=== PATIENT | female | born 1930 | race Caucasian/White ===

== ENCOUNTER 2016-07-18 08:10 | Inpatient (IN) | payer OTHER, BC ==
--- NOTE | 2016-07-18 08:24 | PDOC ---
History of Present Illness - General History Source: Patient Exam Limitations: No Limitations - History of Present Illness Initial Comments: 07/18/16 08:16 85y F hx of advanced parkinsons, htn, reflux, rls, presents with expressive aphasia. The patient was last seen normal yesterday (daughter called and spoke to the patient). This morning, the daugther called the patient to check in on her and she was not making sense and seemed frustrated, so she called EMS. EMS notes the pt was slightly hypetensive to 160s sbp, sat/HR was normal, bgm was 101. There was no apparent deficits otherwise. Pt endorses mild R sided headache, otherwise denies any complaints (Although this may be limited by her expressive aphasia). PCP - Dr. Webb Orthopedist - Dr. Broderick <Noble Gay - Last Filed: 07/18/16 10:41> <Lyle Gamez - Last Filed: 07/18/16 12:06> - General Stated Complaint: CVA/TIA Time Seen by Provider: 07/18/16 08:14 Past History - Past Medical History Anemia: No Asthma: No Cancer: No Cardiac Disorders: No CVA: No COPD: No CHF: No Dementia: No Diabetes: No GI Disorders: Yes (REFLUX) Disorders: No HTN: Yes Hypercholesterolemia: No Liver Disease: No Suicide Attempt (Hx): No Seizures: No Thyroid Disease: No - Surgical History Abdominal Surgery: No Appendectomy: No Cardiac Surgery: No Cholecystectomy: No Lung Surgery: No Neurologic Surgery: No Orthopedic Surgery: Yes (RIGHT / LEFT KNEE REPLACEMENT) - Psycho/Social/Smoking Cessation Hx Anxiety: No Suicidal Ideation: No Smoking Status: No Smoking History: Never smoked Have you smoked in the past 12 months: No Number of Cigarettes Smoked Daily: 0 Hx Alcohol Use: No Drug/Substance Use Hx: No Substance Use Type: None Hx Substance Use Treatment: No <Noble Gay - Last Filed: 07/18/16 10:41> <Lyle Gamez - Last Filed: 07/18/16 12:06> - Past Medical History Allergies/Adverse Reactions: Allergies Allergy/AdvReac Type Severity Reaction Status Date / Time No Known Drug Allergies Allergy Verified 07/18/16 08:18 Home Medications: Ambulatory Orders Carbidopa/Levodopa [Sinemet 25-100 mg Tablet] 2 each PO TID 11/05/11 Aspirin Coated [Ecotrin -] 81 mg PO DAILY 11/06/11 Cyanocobalamin (Vitamin B-12) [Vitamin B-12] 1,000 mcg IM MONTHLY 08/26/13 Cholecalciferol (Vitamin D3) [Vitamin D3] 2,000 unit PO DAILY tablet 12/27/14 Latanoprost 1 drop OP OU HS bottle 07/24/15 Levomefolate/B6/B12/Algal Oil [Metanx Capsule] 1 each PO BID capsule 07/24/15 Gabapentin 300 mg PO HS capsule 04/24/16 Review of Systems - Review of Systems Able to Perform ROS?: Yes (may be limited to her aph) Comments:: 07/18/16 08:18 may be limited due to aphasia Constitutional - no reported Fever, Chills, weakness, HEENT: no reported vision changes, sore throat Respiratory: no reported cough, sob, hemoptysis Cardiac: no reported chest pain, palpitations, light headedness, leg swelling Abd/GI: +nausea no reported abd pain, vomiting, blood per rectum, melena, diarrhea : no reported dysuria, frequency, discharge Musculskelatal - no reported back pain, joint swelling skin - no reported bruising, erythema, rash neurological: +headache no reported , numbness, focal weakness, tingling, ataxia , weakness hematologic: no reported anemia, easy bruising, easy bleeding <Deidra,Noble - Last Filed: 07/18/16 10:41> *Physical Exam - Physical Exam Comments: 07/18/16 08:24 GENERAL: The patient is awake, alert, and fully oriented, Nontoxic - in no acute distress. HEAD: Normocephalic, atraumatic. EYES: extraocular movements intact, sclera anicteric, conjunctiva clear. ENT: Normal voice, Moist mucous membranes. NECK: Normal range of motion, supple LUNGS: Breath sounds equal, clear to auscultation bilaterally. No wheezes, no rhonchi, no rales. HEART: Regular rate and rhythm, normal S1 and S2 without murmur, rub or gallop. ABDOMEN: Soft, nontender, normoactive bowel sounds. No guarding, no rebound. . No CVA tenderness EXTREMITIES: Normal range of motion, no edema. No clubbing or cyanosis. No cords, erythema, or tenderness. NEUROLOGICAL: No facial assymetry, aphasic (expressive), moving all 4 extremities spontaneously and symmetrically, PSYCH: Normal mood, normal affect. SKIN: Warm, Dry, normal turgor, <Noble Gay - Last Filed: 07/18/16 10:41> - Vital Signs Last Vital Signs Temp Pulse Resp BP Pulse Ox 99.7 F H 62 20 146/92 100 07/18/16 08:18 07/18/16 08:18 07/18/16 08:18 07/18/16 08:18 07/18/16 08:18 <Lyle Gamez - Last Filed: 07/18/16 12:06> NIH Stroke Scale - Last Known Well Date/Time & Onset Date Last Known Well: 07/18/16 Time Last Known Well: 19:00 - Initial Evaluation Level of consciousness: Alert Ask patient the month and their age: Both incorrect Ask patient to open & close eyes; make fist and let go: Obeys both correctly Best gaze (horizontal eye movement): Normal Visual field testing: No visual field loss Facial paresis (Show teeth/raise eyebrows/close eyes tight): Normal symmetrical movement Motor Function: Left Arm: Normal Motor Function: Right Arm: Normal (extends arm 90 (or 45) degrees for 10 seconds without drift Motor Function: Left Leg: Normal (extends leg 30 degrees for 5 seconds without drift) Motor Function: Right Leg: Normal (extends leg 30 degrees for 5 seconds without drift) Limb Ataxia: No ataxia Sensory(Use pinprick test arms,legs,trunk,face/side to side): Normal Best language (Describe picture, name items, read sentences): Severe aphasia Dysarthria (read several words): Normal articulation Extinction and Inattention: No abnormality - Total Score NIH Stroke Scale Score: 4 <Noble Gay - Last Filed: 07/18/16 10:41> tPA Exclusion Checklist 0-3hr - Time Elapsed Date last known well: 07/17/16 Time last known well: 19:00 Elaspsed time: Day(s) and 15 Hour(s) and 41 Minutes - Thrombolytic Therapy Candidate Is the patient eligible for Thrombolytic Therapy?: No - Ineligibility reason(s) Reasons No tPA given: Outside of window - delayed arrival <Noble Gay - Last Filed: 07/18/16 10:41> Heart Score/ECG Review - ECG Impressions Comment:: 07/18/16 08:30 Twelve-lead EKG was performed and reviewed by me. There is normal sinus rhythm with a rate of 56 The axis is normal. The intervals are normal. There is normal R wave progression There are no ST or T wave abnormalities. Impression: Sinus bradycardia <Noble Gay - Last Filed: 07/18/16 10:41> Critical Care Time/MDM Note - Medical Decision Making Note: 07/18/16 08:26 85y F hx of htn, advanced prakinsons presents with expressive aphasia, last known normal was last night on exam pts neuro exam seems intact beside her aphasia vitals normal bgm normal suspect stroke outside TPA window (last normal >12 hrs ago) ct head ordered labs/cxr/ua obtained will r/o anemia, metabolic dernagmeent, occult infection NIHSS of 4 07/18/16 10:15 07/18/16 10:[address] head negative for acute disease case dw dr. Isaac. agree w/ mangaement will give pt asa. will admit to stroke unit will admit to the hospitalist service for further mangaement of cva Case discussed in detail with admitting physician including history, physical exam and ancillary studies. Admitting physician has assumed care for the patient, will follow all pending diagnostics and will complete the evaluation and treatment. CRITICAL CARE DOCUMENTATION: I spent ~35 minutes of Critical Care time, excluding separately billable procedures, involving high complexity decision making to assess, manipulate and support vital system function(s) to treat single or multiple vital organ system failure and/or to prevent further life threatening deterioration of the patient' s condition. <Noble Gay - Last Filed: 07/18/16 10:41> - Medical Decision Making Note: 07/18/16 09:[address] Lynnette parekh. Awaiting call back. 07/18/16 10:[address] Lynnette parekh. Was told to call Dr. Isaac. 07/18/16 10:[address] Isaac placed. Awaiting call back. 07/18/16 10:10 Dr. Isaac call into ED. Case discussed. Documentation prepared by Lyle Artuso, acting as medical assembly for Noble Gay MD. <Lyle Gamez - Last Filed: 07/18/16 12:06> Discharge Disposition - Discharge Dispostion Admit: Yes <Noble Gay - Last Filed: 07/18/16 10:41> <Lyle Gamez - Last Filed: 07/18/16 12:06> - Diagnosis Aphasia CVA (cerebral vascular accident) Qualifiers: CVA mechanism: unspecified Qualified Code(s): I63.9 - Cerebral infarction, unspecified - Discharge Dispostion Condition at time of disposition: Guarded - Referrals - Patient Instructions
[2016-07-18] MEDS: SODIUM CHLORIDE 1,000 ML IV SCH ×2 (08:30→12:10)
[2016-07-18 08:34] LABS: BASOPHIL 0.8 % (0-2.0); EOSINOPHIL 0.1 % (0-4.5); MCHC 32.9 g/dl (32.0-36.0); MEAN CELL VOLUME 88.1 fl (80-96); MEAN PLT VOLUME 7.1 fl (7.5-11.1); NEUTROPHILS 75.8 % (42.8-82.8); PLATELET COUNT 174 K/MM3 (134-434); RDW 14.4 % (11.6-15.6); WHITE BLOOD COUNT 7.1 K/mm3 (4.0-10.0)
[2016-07-18 08:52] LABS: INR 1.01 (0.82-1.09); PROTHROMBIN TIME (PATIENT) 11.1 SEC (9.98-11.88)
[2016-07-18 09:03] LABS: ALBUMIN 3.1 g/dl (3.4-5.0); ANION GAP 7 (8-16); BILIRUBIN,TOTAL 0.5 mg/dL (0.2-1.0); CALCIUM 8.5 mg/dL (8.5-10.1); CHOLESTEROL 204 mg/dL (50-200); CO2 29 mmol/L (21-32); CREATININE 0.8 mg/dL (0.55-1.02); GLUCOSE,RANDOM 106 mg/dL (74-106); LDL CHOLESTEROL (ONLY SJRH) 124 mg/dL (5-100); SGOT/AST 14 U/L (15-37); SGPT/ALT 9 U/L (12-78); TOT PROT 6.2 g/dl (6.4-8.2)
[2016-07-18 09:04] LABS: ALK PHOS 86 U/L (45-117); TROPONIN I < 0.02 ng/ml (0.00-0.05)
[2016-07-18] MEDS ORDERED: ASPIRIN 81 MG CHEWABLE TABLETS PO ONE (09:46)
--- NOTE | 2016-07-18 09:50 | EKG ---
Test Reason : Blood Pressure : / mmHG Vent. Rate : 056 BPM Atrial Rate : 056 BPM P-R Int : 166 ms QRS Dur : 106 ms QT Int : 464 ms P-R-T Axes : 016 -12 013 degrees QTc Int : 447 ms SINUS BRADYCARDIA INCOMPLETE RBBB Confirmed by JANEY ROBLES MD ([id number]) on 07/18/2016 9:50:23 AM Referred By: Confirmed By:JANEY ROBLES MD
[2016-07-18] MEDS ORDERED: INSULIN (NOVOLOG) ASPART 100 UNITS/ML 10ML VIAL ONE (10:38)
[2016-07-18] MEDS ORDERED: ASPIRIN 81 MG CHEWABLE TABLETS ONE (10:40)
--- NOTE | 2016-07-18 11:34 | HP ---
CHIEF COMPLAINT: expressive aphasia PCP: Dr. Webb HISTORY OF PRESENT ILLNESS: This 85 year old female presents to the ER with expressive aphasia. Her daughter talked to her on the phone and found her to have difficulty in speaking and getting the words out. The daughter immediately called 911 and responsed to her moms house. The patient was found in the kitchen sitting at the kitchen table. It was obvious to her daughter that she was in the middle of her morning routine when she was found. She took her morning meds but did not complete to make her coffee this morning. She is unable to clearly state words, not able to smile, stick out her tongue, grimace and has minimal problem with turning her neck. she is able to follow command with squeezing hand grasp, wiggle toes and pain sensation. Vicki was brought in via 911 however stroke code not able to be called as last time witnessed without neuro changes is 7:30 pm last evening by daughter. ER course was notable for: (1)aphasia, expressive with CT head neg for any acute infarct or bleed noted. (2)Neurology Dr. Isaac notifed (3)MRI without contrast of head ordered. Recent Travel: none PAST MEDICAL HISTORY: Parkinsons, PAST SURGICAL HISTORY: Social History: Smoking: Alcohol: Drugs: Family History: Allergies No Known Drug Allergies Allergy (Verified 07/18/16 08:18) HOME MEDICATIONS: Home Medications Medication Instructions Recorded Carbidopa/Levodopa [Sinemet 25-100 2 each PO TID 11/05/11 mg Tablet] Aspirin Coated [Ecotrin -] 81 mg PO DAILY 11/06/11 Cyanocobalamin (Vitamin B-12) 1,000 mcg IM MONTHLY 08/26/13 [Vitamin B-12] Cholecalciferol (Vitamin D3) 2,000 unit PO DAILY tablet 12/27/14 [Vitamin D3] Latanoprost 1 drop OP OU HS bottle 07/24/15 Levomefolate/B6/B12/Algal Oil 1 each PO BID capsule 07/24/15 [Metanx Capsule] Gabapentin 300 mg PO HS capsule 04/24/16 REVIEW OF SYSTEMS CONSTITUTIONAL: Absent: fever, chills, diaphoresis, generalized weakness, malaise, loss of appetite, weight change HEENT: Absent: rhinorrhea, nasal congestion, throat pain, throat swelling, difficulty swallowing, mouth swelling, ear pain, eye pain, visual changes CARDIOVASCULAR: Absent: chest pain, syncope, palpitations, irregular heart rate, lightheadedness , peripheral edema RESPIRATORY: Absent: cough, shortness of breath, dyspnea with exertion, orthopnea, wheezing, stridor, hemoptysis GASTROINTESTINAL: Absent: abdominal pain, abdominal distension, nausea, vomiting, diarrhea, constipation, melena, hematochezia GENITOURINARY: Absent: dysuria, frequency, urgency, hesitancy, hematuria, flank pain, genital pain MUSCULOSKELETAL: Positive for chronic: myalgia, arthralgia, joint swelling, back pain, neck pain SKIN: Absent: rash, itching, pallor HEMATOLOGIC/IMMUNOLOGIC: Absent: easy bleeding, easy bruising, lymphadenopathy, frequent infections ENDOCRINE: Absent: unexplained weight gain, unexplained weight loss, heat intolerance, cold intolerance NEUROLOGIC: Absent: headache, focal weakness or paresthesias, dizziness, unsteady gait, seizure, bladder or bowel incontinence, with positive expressive asphasia, not able to follow commands affecting the face but able to follow commands with hands and feet. PHYSICAL EXAMINATION Vital Signs - 24 hr 07/18/16 08:18 Temperature 99.7 F H Pulse Rate 62 Respiratory 20 Rate Blood Pressure 146/92 O2 Sat by Pulse 100 Oximetry (%) GENERAL: Awake, alert, with expressive asphasia HEAD: Normal with no signs of trauma. EYES: Pupils equal, round and reactive to light, extraocular movements intact, sclera anicteric, conjunctiva clear. No lid lag. NECK: minimal neck movement which is chronic, supple without lymphadenopathy, JVD, or masses. LUNGS: Breath sounds equal, clear to auscultation bilaterally. No wheezes, and no crackles. No accessory muscle use. HEART: Regular rate and rhythm, normal S1 and S2 without murmur, rub or gallop. ABDOMEN: Soft, nontender, not distended, normoactive bowel sounds, no guarding, no rebound, no masses. No hepatomegaly or splenomegaly. MUSCULOSKELETAL: Normal range of motion at all joints with + equal hand grasps, wiggles toes. No bony tenderness but with bony deformities. UPPER EXTREMITIES: 2+ pulses, warm, well-perfused. No cyanosis. No clubbing. No peripheral edema. LOWER EXTREMITIES: 2+ pulses, warm, well-perfused. No calf tenderness. No peripheral edema. NEUROLOGICAL: unable to assess gait on bedrest, moving neck slightly to see daughter, facial symmetrical without droop or lip/lid lag, unable to follow commandn for facial smile, tongue thrust, grimacing, or raise eye brows. SKIN: Warm, dry, normal turgor, no rashes or lesions noted, normal capillary refill. Laboratory Results - last 24 hr 07/18/16 07/18/16 07/18/16 08:15 08:25 08:28 WBC 7.1 RBC 4.14 Hgb 12.0 Hct 36.5 MCV 88.1 MCHC 32.9 RDW 14.4 Plt Count 174 MPV 7.1 L Neutrophils % 75.8 D Lymphocytes % 16.6 D Monocytes % 6.7 Eosinophils % 0.1 Basophils % 0.8 INR Sodium 139 Potassium 4.1 Chloride 103 Carbon Dioxide 29 Anion Gap 7 L BUN 18 Creatinine 0.8 Creat Clearance w eGFR > 60 Random Glucose 106 Calcium 8.5 Total Bilirubin 0.5 D AST 14 L D ALT 9 L D Alkaline Phosphatase 86 Creatine Kinase 69 Troponin I < 0.02 Total Protein 6.2 L Albumin 3.1 L Triglycerides 82 Cholesterol 204 H Total LDL Cholesterol 124 H HDL Cholesterol 65 H Blood Type O POSITIVE Antibody Screen Negative 07/18/16 08:28 WBC RBC Hgb Hct MCV MCHC RDW Plt Count MPV Neutrophils % Lymphocytes % Monocytes % Eosinophils % Basophils % INR 1.01 Sodium Potassium Chloride Carbon Dioxide Anion Gap BUN Creatinine Creat Clearance w eGFR Random Glucose Calcium Total Bilirubin AST ALT Alkaline Phosphatase Creatine Kinase Troponin I Total Protein Albumin Triglycerides Cholesterol Total LDL Cholesterol HDL Cholesterol Blood Type Antibody Screen ASSESSMENT/PLAN: A/P 85 yr old female presents to ER with new on expressive asphasia with finding of change since 730 pm last evening. 1. expressive asphasia/r/o cva -Head CT initially neg for acute infarct/bleed -MRI head ordered -Neurology consult Dr. Isaac -received ASA 325 mg -Follow up Echo -admitted in patient to 4S 2. Parkinson's Disease -continue with pt sinemet 3. Hypertension -continue with meds 4. GI/DVT ppx 4PM reviewed MRI brain without any acute finding of bleed or infarct. Awaiting Dr. Isaac for consult note. Problem List - Problem (1) Aphasia Code(s): R47.01 - APHASIA Visit type - Emergency Visit Emergency Visit: Yes ED Registration Date: 07/18/16 Care time: The patient presented to the Emergency Department on the above date and was hospitalized for further evaluation of their emergent condition. - New Patient This patient is new to me today: Yes Date on this admission: 07/18/16 - Critical Care Critical Care patient: No
[2016-07-18] MEDS ORDERED: CYANOCOBALAMIN (VITAMIN B-12) 1000 MCG/1 ML VIAL IM SCH (11:45)
[2016-07-18] MEDS ORDERED: CARBIDOPA/LEVODOPA 25/100 TABLET (FP) ONE (13:52)
[2016-07-18] MEDS: CARBIDOPA/LEVODOPA 25/100 TABLET (FP) PO SCH ×2 (14:02→21:38)
[2016-07-18 14:19] LABS: URINE APPEARANCE CLEAR; URINE BILIRUBIN NEGATIVE (NEGATIVE); URINE BLOOD NEGATIVE (NEGATIVE); URINE COLOR COLORLESS; URINE GLUCOSE (UA) NEGATIVE (NEGATIVE); URINE KETONE NEGATIVE (NEGATIVE); URINE LEUK ESTERASE NEGATIVE (NEGATIVE); URINE NITRITE NEGATIVE (NEGATIVE); URINE PROTEIN NEGATIVE (NEGATIVE); URINE UROBILINOGEN NEGATIVE E.U./dl (0.2-1.0)
[2016-07-18 16:47] VITALS: BMI 27.3
[2016-07-18] MEDS ORDERED: ACETAMINOPHEN 325 MG TABLET (FP) PO ONE (17:34)
[2016-07-18] MEDS ORDERED: ATORVASTATIN CA 40 MG TABLET (FP) PO ONE (18:34)
--- NOTE | 2016-07-18 19:19 | CONSULT ---
Consult - text type - Consultation Consultation Note: NEUROLOGY CONSULTATION is greatly appreciated: This 85 yo RH woman lives alone. Ambulated with flexed shuffling gait according to daughter. PMH sig for HTN, Chol, and Parkinson's diagnosed by me in 2007. On losartan, atorvastatin, amlodipine and Sinemet CR 50/200 TID. This AM her daughter called her and noted gibberish speech. Discussed with Dr. Gay in ER, suspecting aphasia. CT of head (reviewed): Moderate atrophy but no CVA MRI of Brain (reviewed): Earlty ischemic changes in the Left temporal lobe c/w acute CVA. Carotid Duplex dopplers: Scattered plaque without stenosis. TAMIKA: No bruits. Cor Reg (60), No head trauma. S/P B/L TKR's NEURO: Awake, alert, attentive. Follows rare simple commands. GFew gibberish syllables as only output. + Glabella, snout and grasps. Full chacko to threat. No facial. Gag OK No drift. Moves all 4's well. Normal reflexes in arms. Reduced in legs. Toes downgoing. No obvious dystaxia. Withdraws all 4's to pinch. IMP: 1. 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 2. Parkinson's disease. SUGGEST: OK to feed while HOB elevated and observed. Telemetry/ Cardiology consultation/ Echocardiogram. Speech therapy eval and Rx. PT for ambulation with walker. If no cardioembolic source is found Rx Clopidogrel 75 mg PO qd. Tierney eval and transfer early next week. DVT prophylaxis. Thank you very much, Titi Isaac MD
[2016-07-18] MEDS ORDERED: PT OWN MED DRAWER 7, Y5N ONE (21:13)
[2016-07-18] MEDS: RANITIDINE HCL 150 MG TABLET (FP) PO SCH (21:38)
[2016-07-18] MEDS: GABAPENTIN 300 MG CAPSULE (FP) PO SCH (21:38)
[2016-07-18] MEDS: LATANOPROST 0.005% OPHTH SOLN 2.5ML BOTTLE OU SCH (22:37)
[2016-07-19 00:21] LABS: URINE APPEARANCE CLEAR; URINE BILIRUBIN NEGATIVE (NEGATIVE); URINE BLOOD NEGATIVE (NEGATIVE); URINE COLOR YELLOW; URINE GLUCOSE (UA) NEGATIVE (NEGATIVE); URINE KETONE TRACE (NEGATIVE); URINE LEUK ESTERASE NEGATIVE (NEGATIVE); URINE NITRITE NEGATIVE (NEGATIVE); URINE PROTEIN NEGATIVE (NEGATIVE); URINE UROBILINOGEN NEGATIVE E.U./dl (0.2-1.0)
[2016-07-19] MEDS: CARBIDOPA/LEVODOPA 25/100 TABLET (FP) PO SCH ×3 (05:54→22:17)
[2016-07-19 07:36] LABS: BASOPHIL 0.8 % (0-2.0); EOSINOPHIL 0.1 % (0-4.5); MCH 29.1 pg (25.7-33.7); MCHC 33.5 g/dl (32.0-36.0); MEAN CELL VOLUME 86.8 fl (80-96); MEAN PLT VOLUME 7.5 fl (7.5-11.1); NEUTROPHILS 66.1 % (42.8-82.8); PLATELET COUNT 168 K/MM3 (134-434); RDW 14.4 % (11.6-15.6)
[2016-07-19 07:48] LABS: INR 1.12 (0.82-1.09); PROTHROMBIN TIME (PATIENT) 12.3 SEC (9.98-11.88)
[2016-07-19 08:02] LABS: ALBUMIN 2.8 g/dl (3.4-5.0); ANION GAP 7 (8-16); BILIRUBIN,TOTAL 0.7 mg/dL (0.2-1.0); CALCIUM 8.2 mg/dL (8.5-10.1); CO2 28 mmol/L (21-32); COCKROFT - GAULT 77.1035; CREATININE 0.7 mg/dL (0.55-1.02); GLUCOSE,RANDOM 89 mg/dL (74-106); SGOT/AST 10 U/L (15-37); SGPT/ALT 7 U/L (12-78); TOT PROT 5.7 g/dl (6.4-8.2)
[2016-07-19 08:04] LABS: ALK PHOS 65 U/L (45-117); TROPONIN I < 0.02 ng/ml (0.00-0.05)
[2016-07-19] MEDS ORDERED: PT OWN MED DRAWER 7, Y5N ONE ×2 (09:15→22:11)
[2016-07-19] MEDS: SODIUM CHLORIDE 1,000 ML IV SCH ×2 (09:25→13:51)
--- NOTE | 2016-07-19 09:26 | PN ---
Physical Exam: SUBJECTIVE: Patient seen and examined. Sitting up in the bed in no acute distress. She is able to get out only a few words clearly but unable to speak in full sentences. OBJECTIVE: Able to understand some of her words, but she is unable to speak in complete sentences which frustrate her slight left facial droop noted +upper ext with equal strength +lower ext able to move both lower ext Needs swallow eval/speech and PT cardiology consulted Vital Signs Period Temp Pulse Resp BP Sys/Glass Pulse Ox Last 24 Hr 98.2 F-99 F 53-69 16-20 127-181/60-97 95-100 GENERAL: The patient is awake, alert, in no acute distress + expressive aphasia HEAD: slight left facial droop noted EYES: PERRL, extraocular movements intact, sclera anicteric, conjunctiva clear. No ptosis. ENT: moist mucous membranes. NECK: Trachea midline, full range of motion, supple. LUNGS: Breath sounds equal, clear to auscultation bilaterally HEART: sinus bradycardia 50-60 on cardiac rn. EKG 07/18/2016 shows sinus rut. cardia with RBB ABDOMEN: Soft, nontender, nondistended, normoactive bowel sounds, no guarding, no rebound, no hepatosplenomegaly, no masses. EXTREMITIES: no edema. NEUROLOGICAL: Normal speech, gait not observed. PSYCH: Normal mood, normal affect. SKIN: Warm, dry, normal turgor, no rashes or lesions noted Laboratory Results - last 24 hr 07/18/16 07/18/16 07/18/16 12:08 14:14 22:05 WBC RBC Hgb Hct MCV MCHC RDW Plt Count MPV Neutrophils % Lymphocytes % Monocytes % Eosinophils % Basophils % INR Sodium Potassium Chloride Carbon Dioxide Anion Gap BUN Creatinine Creat Clearance w eGFR Random Glucose Calcium Total Bilirubin AST ALT Alkaline Phosphatase Creatine Kinase Troponin I Total Protein Albumin Triglycerides Cancelled Urine Color Colorless Yellow Urine Appearance Clear Clear Urine pH 9.0 H D 6.0 D Ur Specific [place] 1.003 1.020 Urine Protein Negative Negative Urine Glucose (UA) Negative Negative Urine Ketones Negative Trace H Urine Blood Negative Negative Urine Nitrite Negative Negative Urine Bilirubin Negative Negative Urine Urobilinogen Negative Negative Ur Leukocyte Esterase Negative Negative 07/19/16 07/19/16 07/19/16 06:45 06:45 06:45 WBC 6.0 RBC 3.85 Hgb 11.2 Hct 33.4 MCV 86.8 MCHC 33.5 RDW 14.4 Plt Count 168 MPV 7.5 Neutrophils % 66.1 Lymphocytes % 25.9 D Monocytes % 7.1 Eosinophils % 0.1 Basophils % 0.8 INR 1.12 Sodium 140 Potassium 4.0 Chloride 105 Carbon Dioxide 28 Anion Gap 7 L BUN 16 Creatinine 0.7 Creat Clearance w eGFR > 60 Random Glucose 89 Calcium 8.2 L Total Bilirubin 0.7 D AST 10 L D ALT 7 L D Alkaline Phosphatase 65 D Creatine Kinase 58 Troponin I < 0.02 Total Protein 5.7 L Albumin 2.8 L Triglycerides Urine Color Urine Appearance Urine pH Ur Specific [place] Urine Protein Urine Glucose (UA) Urine Ketones Urine Blood Urine Nitrite Urine Bilirubin Urine Urobilinogen Ur Leukocyte Esterase Active Medications Generic Name Dose Route Start Last Admin Trade Name Freq PRN Reason Stop Dose Admin Amlodipine Besylate 5 mg 07/19/16 10:00 Norvasc - PO DAILY BESSIE Aspirin 81 mg 07/19/16 10:00 Ecotrin - PO DAILY BESSIE Atorvastatin Calcium 40 mg 07/19/16 22:00 Lipitor - PO HS BESSIE Carbidopa/Levodopa 2 each 07/18/16 14:00 07/19/16 05:54 Sinemet 25/100 - PO 2 each TID BESSIE Administration Cholecalciferol 2,000 unit 07/19/16 10:00 Vitamin D3 - PO DAILY BESSIE Cyanocobalamin 1,000 mcg 07/18/16 11:45 07/18/16 12:00 Vitamin B12 Injection - IM Not Given Q30D BESSIE Gabapentin 300 mg 07/18/16 22:00 07/18/16 21:38 Neurontin - PO 300 mg HS BESSIE Administration Sodium Chloride 1,000 mls @ 42 mls/hr 07/18/16 08:15 07/18/16 08:30 Normal Saline - IV 42 mls/hr ASDIR BESSIE Administration Sodium Chloride 1,000 mls @ 42 mls/hr 07/18/16 11:45 07/18/16 12:10 Normal Saline - IV Not Given ASDIR BESSIE Latanoprost 1 drop 07/18/16 22:00 07/18/16 22:37 Xalatan 0.005% Eye Drops - OU 1 drop HS BESSIE Administration Losartan Potassium 300 mg 07/19/16 10:00 Cozaar - PO DAILY BESSIE Non-Formulary Medication 1 each 07/18/16 22:00 Levomefolate/B6/B12/Algal Oil [Metanx Capsule] PO BID BESSIE Ranitidine HCl 150 mg 07/18/16 22:00 07/18/16 21:38 Zantac - PO 150 mg BID BESSIE Administration ASSESSMENT/PLAN: Patient is an 85 year old female with a significant past medical history of advanced parkinsons disease, hypertension and GERD who presents to the ER on 07/18/2016 with expressive aphasia. As per the ED notes, the patient was last seen normal by her family on 07/17 but on 07/18 patients daughter noted that her mother's was not making sense over the telephone. She then called EMS. As per EMS, patient was noted to be hypertensive in the 160s sbp. In the ER she was unable to clearly state words, not able to smile, stick out her tongue or grimace. She was able to follow simple commands. Imagin07/18/2016 carotid doppler: interval thickening and small plaques at the bifurcation bilaterally w/o evidence of hemodynamic stenosis o1 brain MRI: acute non-hemorrhagic infarct involving the cortex of the left superior temporal gyrus, angular gyrus 07/18/[address]: mild to mod. volume loss without gross evidence of acute intracranial pathology Neurology: CVA/TIA - acute left temporal CVA with expressive aphasia Assessment/Plan: Patient is awake, alert, able to follow simple commands but unable to get her words out She begins a sentence but unable to finish She has a mild left facial droop On ASA 81mg Started on Lipitor 40mg daily Was not a candidate for tpa on admission Speech and physical therapy evaluation ordered Aspiration precautions Neuro checks Neurologist following Advanced parkinsons disease Assessment/Plan: On Sinemet 04/5099 TID Neuro following Will initiated physical therapy Cardiology: Hypertension - chronic Assessment/Plan - monitor BP in the setting of acute CVA/TIA elevated BP on admission. Will continue cardiac meds Will await cardiology consult for further instructions Echo reviewed On Cozaar 300mg PO daily On Norvasc 5mg daily On ASA 81mg daily Hyperlipidemia Assessment/Plan: Lipid panel reviewed Started on Lipitor 40mg daily F.E.N. Fluids: Normal saline @ 42cc/hr Electrolytes: monitor BMP in a.m. Nutrition: dysphasia pureed diet, needs swallow eval. aspiration precautions HOB @ 45degrees with all meals Prophylaxis: DVT: Lovenox 40mg daily GI: Zantac 150mg BID Disposition: Patient requires inpatient hospitalization. Full Code. Visit type - Emergency Visit Emergency Visit: Yes ED Registration Date: 07/18/16 Care time: The patient presented to the Emergency Department on the above date and was hospitalized for further evaluation of their emergent condition. - New Patient This patient is new to me today: Yes Date on this admission: 07/19/16 - Critical Care Critical Care patient: No - Discharge Referral Referred to [facility] No
[2016-07-19] MEDS: RANITIDINE HCL 150 MG TABLET (FP) PO SCH ×2 (09:27→22:32)
[2016-07-19] MEDS: CHOLECALCIFEROL (VITAMIN D3) 1,000 UNIT TABLET (FP) PO SCH (09:27)
[2016-07-19] MEDS: amLODIPine BESYLATE 5 MG TABLET (FP) PO SCH (09:27)
[2016-07-19] MEDS ORDERED: LOSARTAN POTASSIUM 50 MG TABLET (FP) PO SCH (10:00)
[2016-07-19] MEDS ORDERED: ASPIRIN COATED 81 MG TABLET.EC PO SCH (10:00)
--- NOTE | 2016-07-19 18:38 | CON.CARD ---
Consult Consult Specialty:: Cardiology Referred by:: Hospitalist Medicine Reason for Consultation:: Stroke - History of Present Illness Chief Complaint: Expressive aphasia History of Present Illness: This 85 yo RH woman h/o Parkinsons with gait disturbance, HTN, Chol, admitted for acute onset receptive and expressive aphasia referable to acute left temporal stroke. CT of head (reviewed): Moderate atrophy but no CVA MRI of Brain (reviewed): Early ischemic changes in the Left temporal lobe c/w acute CVA. Carotid Duplex dopplers: Scattered plaque without stenosis. - History Source History Provided By: Medical Record Limitations to Obtaining History: Clinical Condition - Past Medical History ...: No - Alcohol/Substance Use Hx Alcohol Use: No - Smoking History Smoking history: Never smoked Have you smoked in the past 12 months: No Aproximately how many cigarettes per day: 0 Home Medications - Allergies Allergies/Adverse Reactions: Allergies Allergy/AdvReac Type Severity Reaction Status Date / Time No Known Drug Allergies Allergy Verified 07/18/16 08:18 - Home Medications Home Medications: Ambulatory Orders Carbidopa/Levodopa [Sinemet 25-100 mg Tablet] 2 each PO TID 11/05/11 Aspirin Coated [Ecotrin -] 81 mg PO DAILY 11/06/11 Cyanocobalamin (Vitamin B-12) [Vitamin B-12] 1,000 mcg IM MONTHLY 08/26/13 Cholecalciferol (Vitamin D3) [Vitamin D3] 2,000 unit PO DAILY tablet 12/27/14 Latanoprost 1 drop OP OU HS bottle 07/24/15 Levomefolate/B6/B12/Algal Oil [Metanx Capsule] 1 each PO BID capsule 07/24/15 Gabapentin 300 mg PO HS capsule 04/24/16 Citalopram Hydrobromide [Celexa -] 20 mg PO DAILY 07/18/16 Citalopram Hydrobromide [Citalopram HBr] 10 mg PO DAILY 07/18/16 Review of Systems - Review of Systems Neurological: reports: Change in Speech Vital Signs: Vital Signs Temperature 99.3 F 07/19/16 18:00 Pulse Rate 60 07/19/16 18:00 Respiratory Rate 18 07/19/16 18:00 Blood Pressure 109/79 07/19/16 18:00 O2 Sat by Pulse Oximetry (%) 98 07/19/16 10:00 Constitutional: Yes: No Distress, Calm Neck: Yes: Supple Respiratory: Yes: Regular, CTA Bilaterally Gastrointestinal: Yes: Normal Bowel Sounds, Soft Cardiovascular: Yes: Regular Rate and Rhythm JVD: No Carotid Bruit: No Heart Sounds: Yes: S1, S2 Murmur: Yes: Systolic Murmur, Grade 1 Edema: No Neurological: Yes: Aphasia - Other Data Labs, Other Data: CBC, BMP 07/19/16 06:45 07/19/16 06:45 INR, PTT INR 1.12 (0.82-1.09) 07/19/16 06:45 Troponin, BNP 07/19/16 06:45 Troponin I < 0.02 Troponin, BNP 07/19/16 06:45 Troponin I < 0.02 Problem List - Problems (1) Aphasia Code(s): R47.01 - APHASIA (2) CVA (cerebral vascular accident) Code(s): I63.9 - CEREBRAL INFARCTION, UNSPECIFIED Qualifiers: CVA mechanism: unspecified Qualified Code(s): I63.9 - Cerebral infarction, unspecified (3) Hypertensive cardiovascular disease Code(s): I11.9 - HYPERTENSIVE HEART DISEASE WITHOUT HEART FAILURE Qualifiers: Heart failure presence: without heart failure Qualified Code(s): I11.9 - Hypertensive heart disease without heart failure (4) Hyperlipidemia Code(s): E78.5 - HYPERLIPIDEMIA, UNSPECIFIED Qualifiers: Hyperlipidemia type: pure hypercholesterolemia Qualified Code(s): E78.00 - Pure hypercholesterolemia, unspecified; E78.0 - Pure hypercholesterolemia (5) Parkinson's disease Code(s): G20 - PARKINSON'S DISEASE Assessment/Plan Imagin07/18/2016 carotid doppler: interval thickening and small plaques at the bifurcation bilaterally w/o evidence of hemodynamic stenosis 07/18/2016 brain MRI: acute non-hemorrhagic infarct involving the cortex of the left superior temporal gyrus, angular gyrus 07/18/[address]: mild to mod. volume loss without gross evidence of acute intracranial pathology 07/18/2016 Echo: Severe LAE, normal RV and LV size and fxn, abnl LV compliance, mild MR, TR, 1. 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 2. Parkinson's disease with gait disturbance 3. HTN/HCVD 4. Hyperlipidemia P:1. Agree with ASA 81 qd, Lipitor 40 qd, continue losartan 100 qd and amlodipine 5 qd, speech and swallow eval pending 2. Tele monitor to r/o paroxysmal afib, may benefit from longer-term PAF screen if unremarkable 3. Aspiration precautions, PT and gait training with walker, f/u MRA brain 4. DVT and GI prophylaxis 5. Thank you for consultative opportunity
--- NOTE | 2016-07-19 18:59 | PN ---
Progress Note, Physician History of Present Illness: covering neurology 85 yo RH woman lives alone. Ambulated with flexed shuffling gait according to daughter. PMH sig for HTN, Chol, and Parkinson's diagnosed in 2007. On losartan, atorvastatin, amlodipine and Sinemet CR 50/200 TID. admitted for acute language dysfunction, found to have L MCA infarct on MRA ( reviewed) Carotid Duplex dopplers: Scattered plaque without stenosis. no new issues , awake, residual expressive and receptive aphasia, unable to name repeat, follow simple requests, blinks to threat BL no focal weakness, (though limited ability to follow requests) min cogwheeling, no tremor, plantars upgoing R - Current Medication List Current Medications: Active Medications Amlodipine Besylate (Norvasc -) 5 mg PO DAILY [facility] Last Admin: 07/19/16 09:27 Dose: 5 mg Aspirin (Ecotrin -) 81 mg PO DAILY [facility] Last Admin: 07/19/16 09:27 Dose: 81 mg Atorvastatin Calcium (Lipitor -) 40 mg PO [facility] Carbidopa/Levodopa (Sinemet 25/100 -) 2 each PO TID [facility] Last Admin: 07/19/16 13:50 Dose: 2 each Cholecalciferol (Vitamin D3 -) 2,000 unit PO DAILY [facility] Last Admin: 07/19/16 09:27 Dose: 2,000 unit Cyanocobalamin (Vitamin B12 Injection -) 1,000 mcg IM Q30D [facility] Last Admin: 07/18/16 12:00 Dose: Not Given Enoxaparin Sodium (Lovenox -) 40 mg SQ DAILY [facility] Gabapentin (Neurontin -) 300 mg PO HS [facility] Last Admin: 07/18/16 21:38 Dose: 300 mg Sodium Chloride (Normal Saline -) 1,000 mls @ 42 mls/hr IV ASDIR [facility] Last Admin: 07/19/16 13:51 Dose: 42 mls/hr Latanoprost (Xalatan 0.005% Eye Drops -) 1 drop OU HS [facility] Last Admin: 07/18/16 22:37 Dose: 1 drop Losartan Potassium (Cozaar -) 100 mg PO DAILY [facility] Non-Formulary Medication (Levomefolate/B6/B12/Algal Oil [Metanx Capsule]) 1 each PO BID [facility] Ranitidine HCl (Zantac -) 150 mg PO BID [facility] Last Admin: 04/22/17 09:27 Dose: 150 mg - Objective Vital Signs: Vital Signs Temperature 99.3 F 07/19/16 18:00 Pulse Rate 60 07/19/16 18:00 Respiratory Rate 18 07/19/16 18:00 Blood Pressure 109/79 07/19/16 18:00 O2 Sat by Pulse Oximetry (%) 98 07/19/16 10:00 Neurological: Yes: Other (see above) Labs: CBC, BMP 07/19/16 06:45 07/19/16 06:45 INR, PTT INR 1.12 (0.82-1.09) 07/19/16 06:45 Problem List - Problems (1) Aphasia Code(s): R47.01 - APHASIA (2) CVA (cerebral vascular accident) Code(s): I63.9 - CEREBRAL INFARCTION, UNSPECIFIED Qualifiers: CVA mechanism: unspecified Qualified Code(s): I63.9 - Cerebral infarction, unspecified Assessment/Plan This 85 yo RH woman lives alone. Ambulated with flexed shuffling gait according to daughter. PMH sig for HTN, Chol, and Parkinson's with new left temporal/parietal CVA, likely MCA embolism Carotid Duplex dopplers: Scattered plaque without stenosis. check MRA BRAIN change ASA to plavix, statin , permissive hypertension though BP low FU ECHO /HOLTER speech rehab parkinsons stable and may maintain sinemet for now Dr Brunner [phone]
[2016-07-19] MEDS: ENOXAPARIN NA (PORCINE) 40 MG/0.4 ML DISP.SYRIN SQ SCH (22:16)
[2016-07-19] MEDS: LATANOPROST 0.005% OPHTH SOLN 2.5ML BOTTLE OU SCH (22:17)
[2016-07-19] MEDS: ATORVASTATIN CA 40 MG TABLET (FP) PO SCH (22:17)
[2016-07-19] MEDS: GABAPENTIN 300 MG CAPSULE (FP) PO SCH (22:32)
[2016-07-20] MEDS ORDERED: PT OWN MED DRAWER 7, Y5N ONE (05:56)
[2016-07-20] MEDS: CARBIDOPA/LEVODOPA 25/100 TABLET (FP) PO SCH ×3 (05:59→22:04)
--- NOTE | 2016-07-20 08:46 | PN ---
Physical Exam: SUBJECTIVE: Patient seen and examined. States she feels OK. Denies headache, dizziness, visual defect. OBJECTIVE: Patient sitting up in bed, aide at the bedside MRA @ 11a.m. today Sinus bradycardia in the 50s on media monitor ASA 81mg changed to Plavix by Neurology I am able to understand some of her words, but she is unable to speak in complete sentences which frustrate her slight left facial droop noted +upper ext with equal strength +lower ext able to move both lower ext Needs swallow eval/speech and PT Vital Signs Period Temp Pulse Resp BP Sys/Glass Pulse Ox Last 24 Hr 97.5 F-99.5 F 52-60 16-20 109-153/54-81 93-98 GENERAL: The patient is awake, alert, in no acute distress + expressive aphasia HEAD: slight left facial droop noted EYES: PERRL, extraocular movements intact, sclera anicteric, conjunctiva clear. No ptosis. ENT: moist mucous membranes. NECK: Trachea midline, full range of motion, supple. LUNGS: Breath sounds equal, clear to auscultation bilaterally HEART: sinus bradycardia 50-60 on media monitor. EKG 07/18/2016 shows sinus rut. cardia with RBB ABDOMEN: Soft, nontender, nondistended, normoactive bowel sounds, no guarding, no rebound, no hepatosplenomegaly, no masses. EXTREMITIES: no edema. NEUROLOGICAL: Normal speech, gait not observed. PSYCH: Normal mood, normal affect. SKIN: Warm, dry, normal turgor, no rashes or lesions noted Active Medications Generic Name Dose Route Start Last Admin Trade Name Binhq PRN Reason Stop Dose Admin Amlodipine Besylate 5 mg 07/19/16 10:00 07/19/16 09:27 Norvasc - PO 5 mg DAILY BESSIE Administration Atorvastatin Calcium 40 mg 07/19/16 22:00 07/19/16 22:17 Lipitor - PO 40 mg HS BESSIE Administration Carbidopa/Levodopa 2 each 07/18/16 14:00 07/20/16 05:59 Sinemet 25/100 - PO 2 each TID BESSIE Administration Cholecalciferol 2,000 unit 07/19/16 10:00 07/19/16 09:27 Vitamin D3 - PO 2,000 unit DAILY BESSIE Administration Clopidogrel Bisulfate 75 mg 07/20/16 10:00 Plavix - PO DAILY BESSIE Cyanocobalamin 1,000 mcg 07/18/16 11:45 07/18/16 12:00 Vitamin B12 Injection - IM Not Given Q30D BESSIE Diazepam 2.5 mg 07/20/16 10:00 Valium - PO 07/20/16 10:01 ONCE ONE Enoxaparin Sodium 40 mg 07/19/16 21:00 07/19/16 22:16 Lovenox - SQ 40 mg DAILY BESSIE Administration Gabapentin 300 mg 07/18/16 22:00 07/19/16 22:32 Neurontin - PO 300 mg HS BESSIE Administration Sodium Chloride 1,000 mls @ 42 mls/hr 07/18/16 11:45 07/19/16 13:51 Normal Saline - IV 42 mls/hr ASDIR BESSIE Administration Latanoprost 1 drop 07/18/16 22:00 07/19/16 22:17 Xalatan 0.005% Eye Drops - OU 1 drop HS BESSIE Administration Losartan Potassium 100 mg 07/20/16 10:00 Cozaar - PO DAILY BESSIE Non-Formulary Medication 1 each 07/18/16 22:00 Levomefolate/B6/B12/Algal Oil [Metanx Capsule] PO BID BESSIE Ranitidine HCl 150 mg 07/19/16 22:30 07/19/16 22:32 Zantac - PO 150 mg BID BESSIE Administration ASSESSMENT/PLAN: Patient is an 85 year old female with a significant past medical history of advanced parkinsons disease, hypertension and GERD who presents to the ER on 07/18/2016 with expressive aphasia. As per the ED notes, the patient was last seen normal by her family on 07/17 but on 07/18 patients daughter noted that her mother's was not making sense over the telephone. She then called EMS. As per EMS, patient was noted to be hypertensive in the 160s sbp. In the ER she was unable to clearly state words, not able to smile, stick out her tongue or grimace. She was able to follow simple commands. Imagin07/18/2016 carotid doppler: interval thickening and small plaques at the bifurcation bilaterally w/o evidence of hemodynamic stenosis o17 brain MRI: acute non-hemorrhagic infarct involving the cortex of the left superior temporal gyrus, angular gyrus 07/18/[address]: mild to mod. volume loss without gross evidence of acute intracranial pathology 07/20/2016 Brain MRA pending Neurology: CVA/TIA - acute left temporal CVA with expressive aphasia Assessment/Plan: Patient is awake, alert, able to follow simple commands but unable to get her words out She begins a sentence but unable to finish She has a mild left facial droop On Plavix 75mg daily On Lipitor 40mg daily Was not a candidate for tpa on admission Speech and physical therapy evaluation ordered Aspiration precautions Neuro checks Neurologist following Advanced parkinsons disease Assessment/Plan: On Sinemet 04/5099 TID Neuro following Will initiated physical therapy Cardiology: Hypertension - chronic Assessment/Plan - monitor BP in the setting of acute CVA/TIA elevated BP on admission. Will continue cardiac meds as per cardiology note Echo reviewed On Cozaar 100mg PO daily On Norvasc 5mg daily Hyperlipidemia Assessment/Plan: Lipid panel reviewed Started on Lipitor 40mg daily F.E.N. Fluids: Normal saline @ 42cc/hr Electrolytes: monitor BMP in a.m. Nutrition: soft diet, needs swallow eval. aspiration precautions HOB @ 45degrees with all meals Prophylaxis: DVT: Lovenox 40mg daily GI: Zantac 150mg BID Disposition: Patient requires inpatient hospitalization. Full Code. Visit type - Emergency Visit Emergency Visit: Yes ED Registration Date: 07/18/16 Care time: The patient presented to the Emergency Department on the above date and was hospitalized for further evaluation of their emergent condition. - New Patient This patient is new to me today: No - Critical Care Critical Care patient: No - Discharge Referral Referred to [facility] Med P.C.: No
[2016-07-20] MEDS: amLODIPine BESYLATE 5 MG TABLET (FP) PO SCH (09:08)
[2016-07-20] MEDS: ENOXAPARIN NA (PORCINE) 40 MG/0.4 ML DISP.SYRIN SQ SCH (09:08)
[2016-07-20] MEDS: RANITIDINE HCL 150 MG TABLET (FP) PO SCH ×2 (09:08→22:05)
[2016-07-20] MEDS: LOSARTAN POTASSIUM 50 MG TABLET (FP) PO SCH (09:08)
[2016-07-20] MEDS: CHOLECALCIFEROL (VITAMIN D3) 1,000 UNIT TABLET (FP) PO SCH (09:08)
[2016-07-20] MEDS: CLOPIDOGREL BISULFATE 75 MG TABLET (FP) PO SCH (09:11)
[2016-07-20] MEDS ORDERED: diazePAM 5 MG TABLET PO ONE (10:00)
[2016-07-20 11:03] LABS: BASOPHIL 0.9 % (0-2.0); EOSINOPHIL 0.2 % (0-4.5); MCH 29.1 pg (25.7-33.7); MCHC 33.1 g/dl (32.0-36.0); MEAN CELL VOLUME 87.7 fl (80-96); MEAN PLT VOLUME 7.6 fl (7.5-11.1); NEUTROPHILS 62.7 % (42.8-82.8); PLATELET COUNT 182 K/MM3 (134-434); RDW 14.7 % (11.6-15.6); WHITE BLOOD COUNT 7.1 K/mm3 (4.0-10.0)
[2016-07-20 11:25] LABS: ALBUMIN 2.9 g/dl (3.4-5.0); ALK PHOS 64 U/L (45-117); ANION GAP 7 (8-16); BILIRUBIN,TOTAL 0.7 mg/dL (0.2-1.0); CALCIUM 8.5 mg/dL (8.5-10.1); CO2 27 mmol/L (21-32); COCKROFT - GAULT 77.1035; CREATININE 0.7 mg/dL (0.55-1.02); GLUCOSE,RANDOM 97 mg/dL (74-106); SGOT/AST 13 U/L (15-37); SGPT/ALT < 6 U/L (12-78)
[2016-07-20] MEDS ORDERED: LORAZEPAM CARPU-JECT 2 MG/ML DISP.SYRIN IVPUSH ONE (11:27)
[2016-07-20] MEDS: SODIUM CHLORIDE 1,000 ML IV SCH (11:45)
--- NOTE | 2016-07-20 12:40 | PN ---
Progress Note (short form) - Note Progress Note: HPI: 85 yo RH woman lives alone. Ambulated with flexed shuffling gait according to daughter. PMH sig for HTN, Chol, and Parkinson's diagnosed in 2007. On losartan, atorvastatin, amlodipine and Sinemet CR 50/200 TID. admitted for acute language dysfunction, found to have L MCA infarct on MRA ( reviewed) Carotid Duplex dopplers: Scattered plaque without stenosis. FU : no new issues , aide by bedside, no issues last night , due for MRA today awake, residual expressive and receptive aphasia, unable to name repeat, follow simple requests, blinks to threat BL no focal weakness, (though limited ability to follow requests) min cogwheeling, no tremor, plantars upgoing R - Current Medication List Current Medications: Active Medications Home Medication List Medication Instructions Recorded Confirmed Type Carbidopa/Levodopa [Sinemet 25-100 2 each PO TID 11/05/11 07/18/16 History mg Tablet] Aspirin Coated [Ecotrin -] 81 mg PO DAILY 11/06/11 07/18/16 History Cyanocobalamin (Vitamin B-12) 1,000 mcg IM MONTHLY 08/26/13 07/18/16 History [Vitamin B-12] Cholecalciferol (Vitamin D3) 2,000 unit PO DAILY tablet 12/27/14 07/18/16 History [Vitamin D3] Latanoprost 1 drop OP OU HS bottle 07/24/15 07/18/16 History Levomefolate/B6/B12/Algal Oil 1 each PO BID capsule 07/24/15 07/18/16 History [Metanx Capsule] Gabapentin 300 mg PO HS capsule 04/24/16 07/18/16 History Citalopram Hydrobromide [Celexa -] 20 mg PO DAILY 07/18/16 07/18/16 History Citalopram Hydrobromide 10 mg PO DAILY 07/18/16 07/18/16 History [Citalopram HBr] Active Medications Generic Name Dose Route Start Last Admin Trade Name Freq PRN Reason Stop Dose Admin Amlodipine Besylate 5 mg 07/19/16 10:00 07/20/16 09:08 Norvasc - PO 5 mg DAILY BESSIE Administration Atorvastatin Calcium 40 mg 07/19/16 22:00 07/19/16 22:17 Lipitor - PO 40 mg HS BESSIE Administration Carbidopa/Levodopa 2 each 07/18/16 14:00 07/20/16 05:59 Sinemet 25/100 - PO 2 each TID BESSIE Administration Cholecalciferol 2,000 unit 07/19/16 10:00 07/20/16 09:08 Vitamin D3 - PO 2,000 unit DAILY BESSIE Administration Clopidogrel Bisulfate 75 mg 07/20/16 10:00 07/20/16 09:11 Plavix - PO 75 mg DAILY BESSIE Administration Cyanocobalamin 1,000 mcg 07/18/16 11:45 07/18/16 12:00 Vitamin B12 Injection - IM Not Given Q30D BESSIE Diazepam 2.5 mg 07/20/16 10:00 Valium - PO 07/20/16 10:01 ONCE ONE Enoxaparin Sodium 40 mg 07/19/16 21:00 07/20/16 09:08 Lovenox - SQ 40 mg DAILY BESSIE Administration Gabapentin 300 mg 07/18/16 22:00 07/19/16 22:32 Neurontin - PO 300 mg HS BESSIE Administration Sodium Chloride 1,000 mls @ 42 mls/hr 07/18/16 11:45 07/19/16 13:51 Normal Saline - IV 42 mls/hr ASDIR BESSIE Administration Latanoprost 1 drop 07/18/16 22:00 07/19/16 22:17 Xalatan 0.005% Eye Drops - OU 1 drop HS BESSIE Administration Losartan Potassium 100 mg 07/20/16 10:00 07/20/16 09:08 Cozaar - PO 100 mg DAILY BESSIE Administration Non-Formulary Medication 1 each 07/18/16 22:00 Levomefolate/B6/B12/Algal Oil [Metanx Capsule] PO BID BESSIE Ranitidine HCl 150 mg 07/19/16 22:30 07/20/16 09:08 Zantac - PO 150 mg BID BESSIE Administration - Objective Vital Signs: Vital Signs Vital Signs Period Temp Pulse Resp BP Sys/Glass Pulse Ox Last 24 Hr 97.5 F-99.5 F 52-60 16-20 109-153/54-81 93-93 Neurological: Yes: Other (see above) Labs: CBC, BMP 07/19/16 06:45 07/19/16 06:45 INR, PTT INR 1.12 (0.82-1.09) 04/22/17 06:45 Problem List Assessment/Plan This 85 yo RH woman lives alone. Ambulated with flexed shuffling gait according to daughter. PMH sig for HTN, Chol, and Parkinson's with new left temporal/parietal CVA, likely MCA embolism with residual mixed aphasia Carotid Duplex dopplers: Scattered plaque without stenosis. ECHO: LVF WNL, atrial dilation FU MRA BRAIN ASA changed to plavix, statin , permissive hypertension though BP low HOLTER (may need loop as outpt) speech rehab parkinsons stable and may maintain sinemet for now Dr Brunner Problem List - Problems (1) Aphasia Code(s): R47.01 - APHASIA (2) CVA (cerebral vascular accident) Code(s): I63.9 - CEREBRAL INFARCTION, UNSPECIFIED Qualifiers: CVA mechanism: unspecified Qualified Code(s): I63.9 - Cerebral infarction, unspecified
--- NOTE | 2016-07-20 14:58 | PN ---
Progress Note, Physician History of Present Illness: Receptive and expressive aphasia referable to acute left temporal stroke improving, tele shows SB without PAF. CT of head (reviewed): Moderate atrophy but no CVA MRI of Brain (reviewed): Early ischemic changes in the Left temporal lobe c/w acute CVA. Carotid Duplex dopplers: Scattered plaque without stenosis. - Current Medication List Current Medications: Active Medications Amlodipine Besylate (Norvasc -) 5 mg PO DAILY [facility] Last Admin: 07/20/16 09:08 Dose: 5 mg Atorvastatin Calcium (Lipitor -) 40 mg PO HS [facility] Last Admin: 07/19/16 22:17 Dose: 40 mg Carbidopa/Levodopa (Sinemet 25/100 -) 2 each PO TID [facility] Last Admin: 07/20/16 13:58 Dose: 2 each Cholecalciferol (Vitamin D3 -) 2,000 unit PO DAILY [facility] Last Admin: 07/20/16 09:08 Dose: 2,000 unit Clopidogrel Bisulfate (Plavix -) 75 mg PO DAILY [facility] Last Admin: 07/20/16 09:11 Dose: 75 mg Cyanocobalamin (Vitamin B12 Injection -) 1,000 mcg IM Q30D [facility] Last Admin: 07/18/16 12:00 Dose: Not Given Enoxaparin Sodium (Lovenox -) 40 mg SQ DAILY [facility] Last Admin: 07/20/16 09:08 Dose: 40 mg Gabapentin (Neurontin -) 300 mg PO HS [facility] Last Admin: 07/19/16 22:32 Dose: 300 mg Sodium Chloride (Normal Saline -) 1,000 mls @ 42 mls/hr IV ASDIR [facility] Last Admin: 07/20/16 11:45 Dose: 42 mls/hr Latanoprost (Xalatan 0.005% Eye Drops -) 1 drop OU HS [facility] Last Admin: 07/19/16 22:17 Dose: 1 drop Losartan Potassium (Cozaar -) 100 mg PO DAILY [facility] Last Admin: 07/20/16 09:08 Dose: 100 mg Non-Formulary Medication (Levomefolate/B6/B12/Algal Oil [Metanx Capsule]) 1 each PO BID [facility] Ranitidine HCl (Zantac -) 150 mg PO BID [facility] Last Admin: 07/20/16 09:08 Dose: 150 mg - Objective Vital Signs: Vital Signs Temperature 98.0 F 07/20/16 14:38 Pulse Rate 66 04/23/17 14:38 Respiratory Rate 20 07/20/16 14:38 Blood Pressure 127/65 07/20/16 14:38 O2 Sat by Pulse Oximetry (%) 93 L 07/20/16 10:00 Constitutional: Yes: No Distress, Calm Neck: Yes: Supple Cardiovascular: Yes: Bradycardia Respiratory: Yes: Regular, Diminished Gastrointestinal: Yes: Normal Bowel Sounds, Soft, Abdomen, Obese Edema: No Labs: CBC, BMP 07/20/16 10:40 07/20/16 10:40 INR, PTT INR 1.12 (0.82-1.09) 07/19/16 06:45 - ....Imaging EKG: Report Reviewed (SR, no PAF) Problem List - Problems (1) Aphasia Code(s): R47.01 - APHASIA (2) CVA (cerebral vascular accident) Code(s): I63.9 - CEREBRAL INFARCTION, UNSPECIFIED Qualifiers: CVA mechanism: unspecified Qualified Code(s): I63.9 - Cerebral infarction, unspecified (3) Hypertensive cardiovascular disease Code(s): I11.9 - HYPERTENSIVE HEART DISEASE WITHOUT HEART FAILURE Qualifiers: Heart failure presence: without heart failure Qualified Code(s): I11.9 - Hypertensive heart disease without heart failure (4) Hyperlipidemia Code(s): E78.5 - HYPERLIPIDEMIA, UNSPECIFIED Qualifiers: Hyperlipidemia type: pure hypercholesterolemia Qualified Code(s): E78.00 - Pure hypercholesterolemia, unspecified; E78.0 - Pure hypercholesterolemia (5) Parkinson's disease Code(s): G20 - PARKINSON'S DISEASE Assessment/Plan Imagin07/18/2016 carotid doppler: interval thickening and small plaques at the bifurcation bilaterally w/o evidence of hemodynamic stenosis 07/18/2016 brain MRI: acute non-hemorrhagic infarct involving the cortex of the left superior temporal gyrus, angular gyrus 07/18/[address]: mild to mod. volume loss without gross evidence of acute intracranial pathology 07/18/2016 Echo: Severe LAE, normal RV and LV size and fxn, abnl LV compliance, mild MR, TR, 1. 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 2. Parkinson's disease with gait disturbance 3. HTN/HCVD 4. Hyperlipidemia P:1. Agree with Plavix 75 qd, Lipitor 40 qd, continue losartan 100 qd and amlodipine 5 qd, speech and swallow eval pending 2. Tele monitor to r/o paroxysmal afib, may benefit from longer-term PAF screen if unremarkable 3. Aspiration precautions, PT and gait training with walker, f/u MRA brain 4. DVT and GI prophylaxis
[2016-07-20] MEDS: ATORVASTATIN CA 40 MG TABLET (FP) PO SCH (22:04)
[2016-07-20] MEDS: PATIENT'S OWN MEDICATION (NON-FORMULARY) (Levomefolate/B6/B12/Algal Oil [Metanx Capsule] 1 PO SCH (22:05)
[2016-07-20] MEDS: GABAPENTIN 300 MG CAPSULE (FP) PO SCH (22:05)
[2016-07-20] MEDS: LATANOPROST 0.005% OPHTH SOLN 2.5ML BOTTLE OU SCH (22:05)
[2016-07-21] MEDS: CARBIDOPA/LEVODOPA 25/100 TABLET (FP) PO SCH ×3 (06:57→21:36)
[2016-07-21 07:48] LABS: BASOPHIL 0.7 % (0-2.0); EOSINOPHIL 0.3 % (0-4.5); MCH 29.3 pg (25.7-33.7); MCHC 33.5 g/dl (32.0-36.0); MEAN CELL VOLUME 87.3 fl (80-96); MEAN PLT VOLUME 7.8 fl (7.5-11.1); NEUTROPHILS 68.2 % (42.8-82.8); PLATELET COUNT 174 K/MM3 (134-434); RDW 14.5 % (11.6-15.6); WHITE BLOOD COUNT 6.6 K/mm3 (4.0-10.0)
[2016-07-21 08:03] LABS: ALBUMIN 3.1 g/dl (3.4-5.0); ANION GAP 9 (8-16); BILIRUBIN,TOTAL 0.7 mg/dL (0.2-1.0); CALCIUM 9.3 mg/dL (8.5-10.1); CO2 29 mmol/L (21-32); COCKROFT - GAULT 77.1035; CREATININE 0.7 mg/dL (0.55-1.02); GLUCOSE,RANDOM 86 mg/dL (74-106); SGOT/AST 16 U/L (15-37); SGPT/ALT 8 U/L (12-78); TOT PROT 6.1 g/dl (6.4-8.2)
[2016-07-21 08:04] LABS: ALK PHOS 71 U/L (45-117)
--- NOTE | 2016-07-21 09:00 | PN ---
Progress Note, Physician Chief Complaint: Receptive and expressive aphasia noted History of Present Illness: Patient was seen and examined. Awake and alert. Chart was reviewed Denies chest pain, SOB or palpitations She is able to move all extremities - Current Medication List Current Medications: Active Medications Amlodipine Besylate (Norvasc -) 5 mg PO DAILY [facility] Last Admin: 07/20/16 09:08 Dose: 5 mg Atorvastatin Calcium (Lipitor -) 40 mg PO HS [facility] Last Admin: 07/20/16 22:04 Dose: 40 mg Carbidopa/Levodopa (Sinemet 25/100 -) 2 each PO TID [facility] Last Admin: 07/21/16 06:57 Dose: Not Given Cholecalciferol (Vitamin D3 -) 2,000 unit PO DAILY [facility] Last Admin: 07/20/16 09:08 Dose: 2,000 unit Clopidogrel Bisulfate (Plavix -) 75 mg PO DAILY [facility] Last Admin: 07/20/16 09:11 Dose: 75 mg Cyanocobalamin (Vitamin B12 Injection -) 1,000 mcg IM Q30D [facility] Last Admin: 07/18/16 12:00 Dose: Not Given Enoxaparin Sodium (Lovenox -) 40 mg SQ DAILY [facility] Last Admin: 07/20/16 09:08 Dose: 40 mg Gabapentin (Neurontin -) 300 mg PO HS [facility] Last Admin: 07/20/16 22:05 Dose: Not Given Sodium Chloride (Normal Saline -) 1,000 mls @ 42 mls/hr IV ASDIR [facility] Last Admin: 07/20/16 11:45 Dose: 42 mls/hr Latanoprost (Xalatan 0.005% Eye Drops -) 1 drop OU [facility] Last Admin: 07/20/16 22:05 Dose: Not Given Losartan Potassium (Cozaar -) 100 mg PO DAILY [facility] Last Admin: 07/20/16 09:08 Dose: 100 mg Non-Formulary Medication (Levomefolate/B6/B12/Algal Oil [Metanx Capsule]) 1 each PO BID [facility] Last Admin: 07/20/16 22:05 Dose: Not Given Ranitidine HCl (Zantac -) 150 mg PO BID [facility] Last Admin: 07/20/16 22:05 Dose: Not Given - Objective Vital Signs: Vital Signs Temperature 97.4 F L 07/21/16 06:03 Pulse Rate 60 07/21/16 06:03 Respiratory Rate 18 04/24/17 06:03 Blood Pressure 151/68 07/21/16 06:03 O2 Sat by Pulse Oximetry (%) 96 07/20/16 21:00 Neck: Yes: Supple Cardiovascular: Yes: Regular Rate and Rhythm, S1, S2 Respiratory: Yes: CTA Bilaterally Gastrointestinal: Yes: Normal Bowel Sounds, Soft. No: Tenderness Edema: No Labs: CBC, BMP 07/21/16 06:15 07/21/16 06:15 INR, PTT INR 1.12 (0.82-1.09) 07/19/16 06:45 Assessment/Plan 1. 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 2. Parkinson's disease with gait disturbance 3. HTN/HCVD 4. Hyperlipidemia PLAN: 1. Continue Plavix 75 mg qd, Lipitor 40 mg qd, Losartan 100 mg qd and Amlodipine 5 mg qd 2. Telemetry monitoring. PAF screen 3. Aspiration precautions, PT and gait training with walker 4. DVT and GI prophylaxis 5. Neurology follow up Further plans are to follow Minesh Horvath MD
--- NOTE | 2016-07-21 09:27 | PN ---
Progress Note (short form) - Note Progress Note: Patient with history of Parkinson's disease, admitted with new likely embolic infarction. She remains with mixed, predominantly expressive aphasia. MRA unremarkable. Continue workup and rehab as outlined previously. Covering for Dr. Isaac.
[2016-07-21] MEDS: CLOPIDOGREL BISULFATE 75 MG TABLET (FP) PO SCH (10:45)
[2016-07-21] MEDS: CHOLECALCIFEROL (VITAMIN D3) 1,000 UNIT TABLET (FP) PO SCH (10:45)
[2016-07-21] MEDS: RANITIDINE HCL 150 MG TABLET (FP) PO SCH ×2 (10:45→21:35)
[2016-07-21] MEDS: amLODIPine BESYLATE 5 MG TABLET (FP) PO SCH (10:45)
[2016-07-21] MEDS: LOSARTAN POTASSIUM 50 MG TABLET (FP) PO SCH (10:45)
[2016-07-21] MEDS: SODIUM CHLORIDE 1,000 ML IV SCH (10:46)
[2016-07-21] MEDS: ENOXAPARIN NA (PORCINE) 40 MG/0.4 ML DISP.SYRIN SQ SCH (10:47)
--- NOTE | 2016-07-21 11:44 | CONSULT ---
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 Parkinson' s disease with gait disturbance. History Source: Medical Record Limitations to Obtaining History: Clinical Condition - Past Medical History ...: No - Advance Directives Advance Directives: Yes: Health Care Proxy - Smoking History Smoking history: Never smoked Have you smoked in the past 12 months: No Aproximately how many cigarettes per day: 0 - Alcohol/Substance Use Hx Alcohol Use: No History - Admission Reason For Visit: APHASIA,CVA - Diagnostics X-ray: Report Reviewed CT Scan: Report Reviewed MRI: Report Reviewed - General Mental Status: Awake and Alert, Flat Affect Attention: Distractible, Mild Impairment Ability to Follow Directions: Poor Head/Neck Control: Good - Hearing Hearing: Functional Hearing Aide: No Speech Evaluation - Communication Primary Language: TAMAZIGHT Communication: Yes: Aphasia Oral Expression Ability: Yes: Severe Impairment - Speech Production Able to Make Needs Known: Yes: Severely Impaired Intelligibility: Yes: Severely Impaired - Speech Characteristics Voice Loudness: Normal Voice Pitch: Yes: Normal Voice Phonatory-based Quality: Yes: Normal Speech Pattern: Impaired Speech Clarity: < 25% Nasal Resonance: Normal Articulation: Yes: Precise - Language/Auditory Comprehension Observation: Able to respond to yes/no queries: No, Yes/No Confusion: Yes ( inconsistent and unreliable), Comprehends Conversational Speech: No (very limited), Benefits from Slow Speech: Yes, Benefits from Repetiton: Yes, Benefits from Increased Volume of Speech: No - Language/Verbal Expression Aphasia: Yes: Impaired Repetition, Paraphrasic Errors, Neologisms Able to Respond to Simple Queries: Yes: Severely Impaired Able to Communicate Wants and Needs: Yes: Severely Impaired Functional Communication Status: Yes: Severely Impaired - Swallow Evaluation/Bedside Assessment Current Nutritional Intake: Soft, Thin Liquids Oral Secretions: Yes: WFL Dentition: Yes: Adequate Facial Symmetry at Rest: Symmetrical Facial Symmetry on Retraction: Symmetrical Facial Movement: Controlled Pucker Lips: Normal Smile: Normal Lingual Movement: Normal, Symmetric Lingual Speed of Movement: Normal Lingual Movement Strgth Against Opposition: Normal Lingual Movement Characteristics: Normal Velopharyngeal Movement: Normal Laryngeal Elevation: WFL Laryngeal Movement: Able to Palpate Rate of Intake: WFL Bolus Size: WFL Labial Seal: WFL Chewing: WFL Oral Prep Time: Increased A-P Transit: WFL Pocketing: None Timing of Swallow: Delayed Coughing/Throat Clear: No Change in Voice: No Recommendations - Speech Evaluation, Impression/Plan Impression: Pt presents with severe Aphasia with poor functional communication, without dysarthria or dysphagia. Limited awareness with no frustration demonstrated. Impaired attention span. Rare ability to follow 1 step verbal commands but follows gestural/paired with verbal on simple level. Yes/no confusion which is inconsistent and unreliable. Produced syllables and words repeatedly with no function. Unable to repeat/name/sing in unison/. Counted to 4 in unison only without carryover. Occasional social speech eg I dont know,ok, thank you. - Disposition Discharge to: Rehabilitation Center (excellent candidate for intensive Aphasia tx.) - Dysphagia Impressions/Plan Swallowing Skills: WFL Dysphagia Impressions: No Impairment *Silent aspiration: cannot be R/O at bedside - Recommendations Diet Consistency: Regular Medication Administration: Crushed with applesauce Liquids: Thin Liquids
[2016-07-21] MEDS: PATIENT'S OWN MEDICATION (NON-FORMULARY) (Levomefolate/B6/B12/Algal Oil [Metanx Capsule] 1 PO SCH ×2 (13:00→21:42)
--- NOTE | 2016-07-21 14:39 | DS ---
Physical Exam: SUBJECTIVE: Patient seen and examined oob to chair. OBJECTIVE: Vital Signs Period Temp Pulse Resp BP Sys/Glass Pulse Ox Last 24 Hr 97.4 F-98.4 F 59-68 18-20 132-162/64-79 96 PHYSICAL EXAM GENERAL: The patient is awake, alert, and fully oriented, mildly anxious, frustrated HEAD: Normal with no signs of trauma. EYES: PERRL, extraocular movements intact, sclera anicteric, conjunctiva clear. LUNGS: Breath sounds equal, clear to auscultation bilaterally, no wheezes, no crackles, no accessory muscle use. HEART: Regular rate and rhythm, S1, S2 without murmur, rub or gallop. ABDOMEN: Soft, nontender, nondistended, normoactive bowel sounds, no guarding, no rebound, no hepatosplenomegaly, no masses. EXTREMITIES: 2+ pulses, warm, well-perfused, no edema. NEUROLOGICAL: words not discernible, does not follow commands Laboratory Results - last 24 hr 07/21/16 07/21/16 06:15 06:15 WBC 6.6 RBC 4.34 Hgb 12.7 Hct 37.9 MCV 87.3 MCHC 33.5 RDW 14.5 Plt Count 174 MPV 7.8 Neutrophils % 68.2 Lymphocytes % 24.6 Monocytes % 6.2 Eosinophils % 0.3 Basophils % 0.7 Sodium 142 Potassium 4.3 Chloride 104 Carbon Dioxide 29 Anion Gap 9 BUN 14 Creatinine 0.7 Creat Clearance w eGFR > 60 Random Glucose 86 Calcium 9.3 Total Bilirubin 0.7 AST 16 D ALT 8 L D Alkaline Phosphatase 71 Total Protein 6.1 L Albumin 3.1 L HOSPITAL COURSE: Date of Admission:07/18/16 Date of Discharge: 07/21/16 85 year-old woman with a PMH of HTN, HLD, and Parkinson's disease admitted for CVA. Imaging revealed a left MCA infarct as per Dr. Brunner, neurologist. US carotids showed scattered plaque without stenosis. Echo revealed a normal LV and atrial dilation. Patient was treated initially with aspirin which was then changed to Plavix. She was also started on a statin. Her blood pressure was controlled with amlodipine and losartan. Patient was discharged to [facility]. Minutes to complete discharge: 35 Discharge Summary Reason For Visit: APHASIA,CVA Current Active Problems Aphasia (Acute) CVA (cerebral vascular accident) (Acute) Hyperlipidemia (Acute) Hypertensive cardiovascular disease (Acute) Parkinson's disease (Acute) Condition: Improved - Instructions Referrals: Adam Webb MD [Primary Care Provider] - Disposition: PHYSICAL REHABILATION FACILITY - Home Medications Comprehensive Discharge Medication List: Ambulatory Orders Carbidopa/Levodopa [Sinemet 25-100 mg Tablet] 2 each PO TID 11/05/11 Cyanocobalamin (Vitamin B-12) [Vitamin B-12] 1,000 mcg IM MONTHLY 08/26/13 Cholecalciferol (Vitamin D3) [Vitamin D3] 2,000 unit PO DAILY tablet 12/27/14 Latanoprost 1 drop OP OU HS bottle 07/24/15 Levomefolate/B6/B12/Algal Oil [Metanx Capsule] 1 each PO BID capsule 07/24/15 Gabapentin 300 mg PO HS capsule 04/24/16 Citalopram Hydrobromide [Celexa -] 20 mg PO DAILY 07/18/16 Atorvastatin Ca [Lipitor] 40 mg PO HS tablet 07/21/16 Losartan Potassium [Cozaar -] 100 mg PO DAILY tablet 07/21/16 This patient is new to me today: Yes Date on this admission: 07/24/16 Emergency Visit: Yes ED Registration Date: 07/18/16 Care time: The patient presented to the Emergency Department on the above date and was hospitalized for further evaluation of their emergent condition. Critical Care patient: No - Discharge Referral Referred to [facility] Med P.C.: No
[2016-07-21] MEDS ORDERED: PT OWN MED DRAWER 7, Y5N ONE (15:50)
[2016-07-21] MEDS: LATANOPROST 0.005% OPHTH SOLN 2.5ML BOTTLE OU SCH (21:36)
[2016-07-21] MEDS: ATORVASTATIN CA 40 MG TABLET (FP) PO SCH (21:36)
[2016-07-21] MEDS: GABAPENTIN 300 MG CAPSULE (FP) PO SCH (21:36)
[2016-07-22] MEDS: CARBIDOPA/LEVODOPA 25/100 TABLET (FP) PO SCH (06:48)
--- NOTE | 2016-07-22 08:21 | PN ---
Progress Note, Physician Chief Complaint: speech difficulty History of Present Illness: patient with history of parkinson's disease has acute onset of nonsensical speech. Followed by Dr. Isaac, whom I am covering for until tomorrow. - Current Medication List Current Medications: Active Medications Amlodipine Besylate (Norvasc -) 5 mg PO DAILY [facility] Last Admin: 07/21/16 10:45 Dose: 5 mg Atorvastatin Calcium (Lipitor -) 40 mg PO HS [facility] Last Admin: 07/21/16 21:36 Dose: 40 mg Carbidopa/Levodopa (Sinemet 25/100 -) 2 each PO TID [facility] Last Admin: 07/22/16 06:48 Dose: 2 each Cholecalciferol (Vitamin D3 -) 2,000 unit PO DAILY [facility] Last Admin: 07/21/16 10:45 Dose: 2,000 unit Clopidogrel Bisulfate (Plavix -) 75 mg PO DAILY [facility] Last Admin: 07/21/16 10:45 Dose: 75 mg Cyanocobalamin (Vitamin B12 Injection -) 1,000 mcg IM Q30D [facility] Last Admin: 07/18/16 12:00 Dose: Not Given Enoxaparin Sodium (Lovenox -) 40 mg SQ DAILY [facility] Last Admin: 07/21/16 10:47 Dose: 40 mg Gabapentin (Neurontin -) 300 mg PO HS [facility] Last Admin: 07/21/16 21:36 Dose: 300 mg Sodium Chloride (Normal Saline -) 1,000 mls @ 42 mls/hr IV ASDIR [facility] Last Admin: 07/21/16 10:46 Dose: 42 mls/hr Latanoprost (Xalatan 0.005% Eye Drops -) 1 drop OU HS [facility] Last Admin: 07/21/16 21:36 Dose: Not Given Losartan Potassium (Cozaar -) 100 mg PO DAILY [facility] Last Admin: 07/21/16 10:45 Dose: 100 mg Non-Formulary Medication (Levomefolate/B6/B12/Algal Oil [Metanx Capsule]) 1 each PO BID [facility] Last Admin: 07/21/16 21:42 Dose: Not Given Ranitidine HCl (Zantac -) 150 mg PO BID [facility] Last Admin: 07/21/16 21:35 Dose: 150 mg - Objective Vital Signs: Vital Signs Temperature 97.6 F 07/22/16 06:00 Pulse Rate 65 07/22/16 06:00 Respiratory Rate 18 07/22/16 06:00 Blood Pressure 158/77 07/22/16 06:00 O2 Sat by Pulse Oximetry (%) 93 L 07/21/16 21:00 Neurological: Yes: Alert, Aphasia (increased fluency compared to yesterday, but still markedly reduced word production and words are also incorrect, that is multiple paraphasic errors. She cannot repeat. she does not follow commands indicating markedly impaired comprehension as well.), Babinski negative, Cran Nerves II-XII Intact ...Motor Strength: WNL Labs: CBC, BMP 07/21/16 06:15 07/21/16 06:15 INR, PTT INR 1.12 (0.82-1.09) 07/19/16 06:45 - ....Imaging MRI: Report Reviewed (MRA shows no significant stenosis, MRI shows left temporal ischemia) Problem List - Problems (1) CVA (cerebral vascular accident) Assessment/Plan: suspect embolic, though no clear documented source. May benefit from extended monitoring upon discharge. Dr. Isaac back . Code(s): I63.9 - CEREBRAL INFARCTION, UNSPECIFIED Qualifiers: CVA mechanism: unspecified Qualified Code(s): I63.9 - Cerebral infarction, unspecified (2) Aphasia Assessment/Plan: expressive and receptive features, though centered in temporal lobe. Speech therapy and swallowing evaluation underway and appreciated. Code(s): R47.01 - APHASIA
[2016-07-22] MEDS: LOSARTAN POTASSIUM 50 MG TABLET (FP) PO SCH (09:01)
[2016-07-22] MEDS: CLOPIDOGREL BISULFATE 75 MG TABLET (FP) PO SCH (09:01)
[2016-07-22] MEDS: CHOLECALCIFEROL (VITAMIN D3) 1,000 UNIT TABLET (FP) PO SCH (09:01)
[2016-07-22] MEDS: RANITIDINE HCL 150 MG TABLET (FP) PO SCH (09:01)
[2016-07-22] MEDS: amLODIPine BESYLATE 5 MG TABLET (FP) PO SCH (09:02)
[2016-07-22] MEDS: ENOXAPARIN NA (PORCINE) 40 MG/0.4 ML DISP.SYRIN SQ SCH (09:02)
[2016-07-22 09:34] VITALS: BP 114/62; PULSE 59; TEMP 98.9
--- NOTE | 2016-07-22 12:03 | PN ---
Progress Note, Physician Chief Complaint: Receptive and expressive aphasia noted History of Present Illness: Patient was seen and examined. Awake and alert. Chart was reviewed Denies chest pain, SOB or palpitations Patient is being discharged to [facility] - Objective Vital Signs: Vital Signs Temperature 98.9 F 07/22/16 09:33 Pulse Rate 59 L 07/22/16 09:33 Respiratory Rate 18 07/22/16 09:33 Blood Pressure 114/62 07/22/16 09:33 O2 Sat by Pulse Oximetry (%) 96 07/22/16 09:00 Neck: Yes: Supple Cardiovascular: Yes: Regular Rate and Rhythm, S1, S2 Respiratory: Yes: CTA Bilaterally Gastrointestinal: Yes: Normal Bowel Sounds, Soft. No: Tenderness Edema: No Labs: CBC, BMP 07/21/16 06:15 07/21/16 06:15 Problem List - Problems (1) Aphasia Code(s): R47.01 - APHASIA (2) CVA (cerebral vascular accident) Code(s): I63.9 - CEREBRAL INFARCTION, UNSPECIFIED Qualifiers: CVA mechanism: unspecified Qualified Code(s): I63.9 - Cerebral infarction, unspecified (3) Hyperlipidemia Code(s): E78.5 - HYPERLIPIDEMIA, UNSPECIFIED Qualifiers: Hyperlipidemia type: pure hypercholesterolemia Qualified Code(s): E78.00 - Pure hypercholesterolemia, unspecified; E78.0 - Pure hypercholesterolemia (4) Hypertensive cardiovascular disease Code(s): I11.9 - HYPERTENSIVE HEART DISEASE WITHOUT HEART FAILURE Qualifiers: Heart failure presence: without heart failure Qualified Code(s): I11.9 - Hypertensive heart disease without heart failure (5) Parkinson's disease Code(s): G20 - PARKINSON'S DISEASE Assessment/Plan 1. 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 2. Parkinson's disease with gait disturbance 3. HTN/HCVD 4. Hyperlipidemia PLAN: 1. Continue Plavix 75 mg qd, Lipitor 40 mg qd, Losartan 100 mg qd and Amlodipine 5 mg qd 2. PT and gait training with walker - Rehab at [facility] 3. DVT and GI prophylaxis Further plans are to follow Minesh Horvath MD
== END 2016-07-22 11:11 | DRG 66 ==
LOC: JER 08:10 → JERBED 10:41 → J4S 18:05
PROVIDERS: ADMIT Internal Medicine; ATTEND Nurse Practitioner Acute Care
DX: I63.9 Cerebral infarction, unspecified (principal); R47.01 Aphasia; G20 Parkinson's disease; E78.5 Hyperlipidemia, unspecified; R26.89 Other abnormalities of gait and mobility; R29.704 NIHSS score 4; I11.9 Hypertensive heart disease without heart failure
CPT/HCPCS: 36415; 70450-TC; 70544-TC; 70551-TC; 71010-TC; 80053; 81003; 82465; 82550; 83718; 83721; 84478; 84484; 85025; 85610; 86850; 86900; 86901; 93005; 93010; 93306-TC; 93880-TC; 97116-GP; 97161-GP; 99285-25

== ENCOUNTER 2016-10-11 20:09 | Emergency (ER) | payer OTHER, BC ==
[2016-10-11 20:29] VITALS: BP 141/70; PULSE 56; TEMP 97.6; BMI 30.1
--- NOTE | 2016-10-11 20:40 | PDOC ---
History of Present Illness - General Stated Complaint: DIZZINESS Time Seen by Provider: 10/11/16 20:17 History Source: Patient, Care Provider Exam Limitations: Dementia - History of Present Illness Initial Comments: 10/11/16 20:40 CC: Lightheadedness Majority of HPI obtained from patient's orthodontist assistant @ bedside as patient's baseline as per EMR is A&O x1 Patient is an 85 female with a PMH of HTN, Parkinson's Disease, GERD and RLS who presents to our facility today with her orthodontist assistant following an episode of lightheadedness today as well as acute onset of vomiting today (3 episodes of orange colored emesis). Patient's orthodontist assistant states patient was on the couch watching television after breakfast when she vomited twice. Patient subsequently c/o feeling "dizzy" which patient describes as feeling "lightheaded." Patient did not lose consciousness and patient denies any chest pain, palpitations or confusion during this time. Agricultural Engineer also notes patient has decreased oral intake for the past 48 hours which patient attributes to decreased appetite 2/2 to the heat as well as loss of appetite 2/2 to life stressors including loneliness and arguments with her children. 10/12/16 02:25 Timing/Duration: 4-6 hours Severity: mild Associated Symptoms: reports: nausea/vomiting Past History - Past Medical History Allergies/Adverse Reactions: Allergies Allergy/AdvReac Type Severity Reaction Status Date / Time No Known Drug Allergies Allergy Verified 10/11/16 22:55 Home Medications: Ambulatory Orders Aspirin [ASA -] 81 mg PO DAILY 10/11/16 Atorvastatin Calcium 40 mg PO BID 10/11/16 Carbidopa/Levodopa 25/100 [Sinemet 25/100 -] 50 ml PO TID 10/11/16 Cephalexin [Keflex] 500 mg PO BID #10 capsule 10/11/16 Escitalopram Oxalate [Lexapro -] 20 mg PO DAILY 10/11/16 Losartan/Hydrochlorothiazide [Losartan-Hctz 100-12.5 mg Tab] 1 each PO DAILY Nizatidine 150 mg PO BID 10/11/16 Anemia: No Asthma: No Cancer: No Cardiac Disorders: No CVA: No COPD: No CHF: No Dementia: No Diabetes: No GI Disorders: Yes (REFLUX) Disorders: No HTN: Yes Hypercholesterolemia: No Liver Disease: No Suicide Attempt (Hx): No Seizures: No Thyroid Disease: No - Surgical History Abdominal Surgery: No Appendectomy: No Cardiac Surgery: No Cholecystectomy: No Lung Surgery: No Neurologic Surgery: No Orthopedic Surgery: Yes (RIGHT / LEFT KNEE REPLACEMENT) - Psycho/Social/Smoking Cessation Hx Anxiety: No Suicidal Ideation: No Smoking Status: No Smoking History: Never smoked Have you smoked in the past 12 months: No Number of Cigarettes Smoked Daily: 0 Hx Alcohol Use: No Drug/Substance Use Hx: No Substance Use Type: None Hx Substance Use Treatment: No Review of Systems - Review of Systems Able to Perform ROS?: No (limited by dementia) *Physical Exam - Physical Exam General Appearance: Yes: Appropriately Dressed HEENT: positive: EOMI, KHARI Neck: positive: Trachea midline, Supple Respiratory/Chest: positive: Lungs Clear, Normal Breath Sounds Cardiovascular: positive: Regular Rhythm, Regular Rate, S1, S2 ED Treatment Course - LABORATORY CBC & Chemistry Diagram: 10/11/16 20:31 10/11/16 20:31 Medical Decision Making - Medical Decision Making 10/11/16 21:35 Patient is an 85 female with a PMH of HTN, Parkinson's Disease, GERD and RLS who presents to our facility today with her orthodontist assistant c/o near syncope and 3 episodes of non-bloody, orange colored emesis. Differential diagnosis includes cardiac (arrhythmia, ACS) vs. gastrointestinal (gastritis, cholecytitis , pancreatitis) vs. electrolyte abnormality vs. infection (UTI, pneumonia). Patient's EKG showed sinus bradycardia (HR 56) which is consistent with EKG's on previous admissions. CBC and BMP were unremarkable ruling out anemia and electrolyte abnormality as source of lightheadedness. Preliminary read of CXR showed no acute abnormality (less likely infectious source), FOBT (-) and Troponin was (-) x1. Urinalysis showed 1+ Leukocyte esterase with rare bacteria. Patient was discharged with a prescription for Keflex for UTI and instructed to follow up with her PCP within 1 week. Patient's orthodontist assistant was further instructed that patient should return to the ED should she become febrile, confused, or continue to feel lightheaded or weak. PLAN 1. Keflex (500 mg BID) x 7 days an episode of lightheadedness today as well as acute onset of vomiting today ( 3 episodes of orange colored emesis). Patient presents with vomiting as well as lightheadedness, as patient is geriatric and has baseline dementia work-up is broad including cardiac, gastrointestinal and infectious causes. 10/12/16 02:25 10/12/16 02:27 *DC/Admit/Observation/Transfer Diagnosis at time of Disposition: Urinary tract bacterial infections - Discharge Dispostion Disposition: HOME Condition at time of disposition: Good - Prescriptions Prescriptions: Cephalexin [Keflex] 500 mg PO BID #10 capsule - Referrals Referrals: Adam Webb MD [Primary Care Provider] - - Patient Instructions Printed Discharge Instructions: Urinary Tract Infection, DI for Dehydration -- Adult - Attestations Physician Attestion: 10/11/16 23:31 I, Dr. Toshia Curiel, attest that this document has been prepared under my direction and personally reviewed by me in its entirety. I further attest, that it accurately reflects all work, treatment, procedures and medical decision -making performed by me.
[2016-10-11 20:47] LABS: MCH 28.5 pg (25.7-33.7); MCHC 32.5 g/dl (32.0-36.0); MEAN CELL VOLUME 87.8 fl (80-96); MEAN PLT VOLUME 8.2 fl (7.5-11.1); PLATELET COUNT 176 K/MM3 (134-434); RDW 15.6 % (11.6-15.6); WHITE BLOOD COUNT 6.7 K/mm3 (4.0-10.0)
[2016-10-11] MEDS ORDERED: SODIUM CHLORIDE 0.9% 1000 ML INFUS.BAG IV ONE (21:05)
[2016-10-11 21:11] LABS: ANION GAP 6 (8-16); CALCIUM 9.4 mg/dL (8.5-10.1); CO2 32 mmol/L (21-32); CREATININE 0.9 mg/dL (0.55-1.02); GLUCOSE,RANDOM 139 mg/dL (74-106)
[2016-10-11 22:12] LABS: ALBUMIN 3.5 g/dl (3.4-5.0); BILIRUBIN,DIRECT 0.2 mg/dL (0.0-0.2); BILIRUBIN,TOTAL 0.5 mg/dL (0.2-1.0); SGOT/AST 12 U/L (15-37); SGPT/ALT 8 U/L (12-78); TOT PROT 6.5 g/dl (6.4-8.2)
[2016-10-11 22:13] LABS: ALK PHOS 89 U/L (45-117); TROPONIN I < 0.02 ng/ml (0.00-0.05)
--- NOTE | 2016-10-11 22:22 | PDOC ---
Attending Attestation - Resident Resident Name: Toshia Curiel - ED Attending Attestation I have performed the following: I have examined & evaluated the patient, The case was reviewed & discussed with the resident, I agree w/resident's findings & plan, Exceptions are as noted - HPI HPI: 10/11/16 22:21 Agree with the resident's HPI as documented in the electronic medical record. - Physicial Exam PE: 10/11/16 22:21 Agree with the resident's physical examination as documented in the electronic medical record. - Medical Decision Making 10/11/16 22:21 85-year-old female with history of hypertension, Parkinson's disease, GERD who presents the emergency department with decreased by mouth intake over the past several days, vomiting 3 today and near syncope. Differential diagnosis includes but is not limited to: ACS, cardiac arrhythmia, vasovagal response, dehydration, gastritis, pancreatitis, gallbladder disease, electrolyte abnormality, toxic/metabolic derangement, infectionUTI versus pneumonia. Plan: 1. EKG 2. Labs 3. IV fluids for hydration 4. Urine analysis 5. Observe and reevaluate
[2016-10-11 22:48] LABS: URINE APPEARANCE CLEAR; URINE BILIRUBIN NEGATIVE (NEGATIVE); URINE BLOOD NEGATIVE (NEGATIVE); URINE COLOR LTYELLOW; URINE GLUCOSE (UA) NEGATIVE (NEGATIVE); URINE KETONE TRACE (NEGATIVE); URINE NITRITE NEGATIVE (NEGATIVE); URINE PROTEIN NEGATIVE (NEGATIVE); URINE UROBILINOGEN NEGATIVE mg/dL (0.2-1.0)
[2016-10-11 23:02] LABS: URINE LEUK ESTERASE 1+ (NEGATIVE)
[2016-10-11 23:36] LABS: URINE BACTERIA RARE /hpf (NONE SEEN); URINE HYALINE CAST 1 /lpf; URINE MUCUS RARE; URINE RBC 7 /hpf (0-3); URINE WBC 1 /hpf (3-5)
[2016-10-11] MEDS ORDERED: CEPHALEXIN MONOHYDRATE 250 MG CAPSULE (FP) ONE (23:47)
[2016-10-11] MEDS ORDERED: CEPHALEXIN MONOHYDRATE 500 MG CAPSULE (UD) PO ONE (23:56)
--- NOTE | 2016-10-12 13:58 | EKG ---
Test Reason : Blood Pressure : / mmHG Vent. Rate : 056 BPM Atrial Rate : 056 BPM P-R Int : 190 ms QRS Dur : 112 ms QT Int : 456 ms P-R-T Axes : 070 -17 006 degrees QTc Int : 440 ms POOR DATA QUALITY, INTERPRETATION MAY BE ADVERSELY AFFECTED SINUS BRADYCARDIA MINIMAL VOLTAGE CRITERIA FOR LVH, MAY BE NORMAL VARIANT BORDERLINE ECG WHEN COMPARED WITH ECG OF 18-JUL-2016 08:22, NONSPECIFIC T WAVE ABNORMALITY NO LONGER EVIDENT IN LATERAL LEADS Confirmed by DEISY HAGER, MELODIE ([id number]) on 10/12/2016 1:58:13 PM Referred By: Confirmed By:MELODIE OLIVAS MD
== END 2016-10-12 00:21 | disposition home or self-care (01) ==
LOC: JER 20:09
DX: N39.0 Urinary tract infection, site not specified (principal); B96.89 Other specified bacterial agents as the cause of diseases classified elsewhere; I10 Essential (primary) hypertension; K21.9 Gastro-esophageal reflux disease without esophagitis; G20 Parkinson's disease; F02.80 Dementia in other diseases classified elsewhere, unspecified severity, without behavioral disturbance, psychotic disturbance, mood disturbance, and anxiety; G25.81 Restless legs syndrome
CPT/HCPCS: 36415; 71010-TC; 80048; 80076; 81003; 81015; 82272; 82550; 83690; 84484; 85027; 87086; 93005; 93010; 99284-25